=== PATIENT | male | born 1990 | race Caucasian/White ===

== ENCOUNTER 2019-11-20 21:09 | Emergency (ER) | payer OTHER ==
[~2019-11-20] VITALS: Ht 182.9 cm; Wt 74.8 kg
[~2019-11-20 21:09] MED LIST: HYDACE5 PO; IBUP600 PO; Norco 10-325 T1 EACH PO; PENVK500 PO
== END 2019-11-21 01:18 | disposition home or self-care (01) ==
LOC: ER 21:09
DX: S61.210A Laceration without foreign body of right index finger without damage to nail, initial encounter (principal); F17.200 Nicotine dependence, unspecified, uncomplicated; Z23 Encounter for immunization; W23.0XXA Caught, crushed, jammed, or pinched between moving objects, initial encounter
CPT/HCPCS: 12001; 73140; 90471; 90714; 99283-25